=== PATIENT | male | born 1995 | race Caucasian/White ===

== ENCOUNTER 2023-05-26 18:10 | Emergency (ER) | payer OTHER, SELFPAY ==
[2023-05-26 18:12] VITALS: BP 170/110; PULSE 103; RESP 18; TEMP 36.9; O2SAT 99; BMI 30.9
--- NOTE | 2023-05-26 18:37 | XR_ITS ---
[facility] [id number] Patient Name: SADAF RICH MRN: [id number] date: 1995 Sex: M Assigned Patient Location: ER Current Patient Location: ED.MAIN Accession/Order Number: [id number] Exam Date: 05/26/2023 16:50 Report Date: 05/26/2023 19:17 At the request of: SANDRO SPANN Procedure: XR chest 2V EXAM: XR chest 2V HISTORY: cough COMPARISON: None. TECHNIQUE: 2 views of the chest FINDINGS: Heart size normal. No focal consolidation, pleural effusion, pulmonary congestion or pneumothorax. XR/XR chest 2V IMPRESSION: No acute findings. Electronically authenticated by: MARGARITA ALFARO Date: 05/26/2023 19:17
[2023-05-26 18:49] VITALS: BP 148/93
--- NOTE | 2023-05-26 18:50 | ED_ITS ---
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 He felt like he couldn't breathe and coughed up the phlegm. He felt better but was wheezing and nervous. He arrived very anxious. He told me that he has been coughing intermittently for several weeks. He has some sinus pressure and occasional drainage. No fever or chills. He said that he did not get tested for any of this because he does not like hospitals and gets very anxious when he arrived to the point that he had a hive-like rash on arrival. he has since calmed down and the rash has dissipated as his anxiety decreased. Related Data Previous Rx's ?Medication ?Instructions ?Recorded yterofafsngafgj-emitysdbtawwwsz-EW 5 ml PO Q6H PRN sinus symptoms 7 05/26/23 2 mg-30 mg-10 mg/5 mL oral syrup days #118 mL (Bromfed DM) Allergies Allergy/AdvReac Type Severity Reaction Status Date / Time No Known Drug Allergies Allergy Verified 05/26/23 18:16 Exam Narrative Exam Narrative: Nurses notes and vital signs reviewed and patient is not hypoxic. afebrile General: Well-appearing and in no apparent distress. Skin: Warm, dry, no pallor noted. Decreasing erythematous rash to the back that resembles cutaneous flushing. Head: Normocephalic, atraumatic. Neck: Supple, non-tender. No cervical lymphadenopathy Eye: Pupils are equal, round and EOMI. No scleral icterus. Ears, Nose, Mouth, and Throat: TM are clear, no posterior oropharynx erythema or nasal mucosal hypertrophy, uvula is mid-line Oral mucosa is moist Cardiovascular: Regular Rate and Rhythm without murmur, gallop or rub. Respiratory: No accessory muscle use or respiratory distress. Lungs are clear to auscultation, no wheezing, rales or rhonchi GI: Abdomen is soft, non-distended. Normal bowel sounds. No tenderness to palpation. No rebound, guarding, or rigidity noted. Neurological: A&O x4. No cranial nerve dysfunction observed. No truncal ataxia. Moves all extremities. Sensation intact. Psychiatric: Cooperative and interactive. Normal mood and affect. Constitutional Vital Signs, click to edit/add: Last Vital Signs Temp 98.4 F 05/26/23 18:12 Pulse 103 H 05/26/23 18:12 Resp 18 05/26/23 18:12 BP 148/93 H 05/26/23 18:49 Pulse Ox 99 05/26/23 18:12 O2 Del Method Room Air 05/26/23 18:12 Course Vital Signs Vital signs: Vital Signs Temperature 98.4 F 05/26/23 18:12 Pulse Rate 103 H 05/26/23 18:12 Respiratory Rate 18 05/26/23 18:12 Blood Pressure 170/110 H 05/26/23 18:12 Pulse Oximetry 99 05/26/23 18:12 Oxygen Delivery Method Room Air 05/26/23 18:12 Temperature 98.4 F 05/26/23 18:12 Pulse Rate 103 H 05/26/23 18:12 Respiratory Rate 18 05/26/23 18:12 Blood Pressure 148/93 H 05/26/23 18:49 Pulse Oximetry 99 05/26/23 18:12 Oxygen Delivery Method Room Air 05/26/23 18:12 MDM - SOB/Dyspnea MDM Narrative Medical decision making narrative: Swabs were obtained for influenza and COVID. Chest x-ray was also obtained. He was offered Hydroxyzine for his anxiety but he has already dissipated within about 20 minutes of being at the emergency department. His cutaneous flushing also was decreasing as his time in the ED progressed. Chest x-ray does not reveal any pneumonia or other worrisome findings. The patient was informed of results, given reassurance and discharged with a prescription for Bromfed syrup to help with his cough and congestion. He was recommended to see his primary care physician for follow-up Imaging Data Chest x-ray: My impression: No acute cardiopulmonary disease Discharge Plan Discharge Stand Alone Forms: Portal Instructions Chief Complaint: Shortness of Breath/Dyspnea Clinical Impression: Upper respiratory infection Patient Disposition: Home, Self-Care Time of Disposition Decision: 18:55 Prescriptions / Home Meds: New pgopfzgqxmzbcza-iruzrpiww-WD [Bromfed DM] 2-30-10 mg/5 mL syrup 5 ml PO Q6H PRN (Reason: sinus symptoms) 7 Days Qty: 118 0RF Print Language: Polish Instructions: Upper Respiratory Infection (ED) Referrals: Physician,Non-Staff, MD [Primary Care Provider] - 1 week
--- NOTE | 2023-05-26 18:53 | PC.NURSE ---
pt states he doesn't feel like he needs anythiing for anxiety at this time
[2023-05-26 19:04] LABS: SARS-CoV-2 Ag NEGATIVE (NEGATIVE)
[2023-05-26 19:05] LABS: Influenza Virus A Antigen Negative; Influenza Virus B Antigen Negative; Internal Control Within Normal Limits
== END 2023-05-26 19:40 | disposition home or self-care (01) ==
PROVIDERS: Emergency Medicine; Emergency Provider Internal Medicine
DX: J06.9 Acute upper respiratory infection, unspecified (principal); Z20.822 Contact with and (suspected) exposure to COVID-19
CPT/HCPCS: 71046; 87804; 87811; 99285